=== PATIENT | female | born 2005 | race Caucasian/White ===

== ENCOUNTER 2024-05-09 22:12 | Observation (INO) ==
[2024-05-09] MEDS: KETOROLAC TROMETHAMINE 15 MG/ML VIAL IV STA (22:37)
[2024-05-09] MEDS: FAMOTIDINE 20MG IV PUSH 20 MG/5 ML SYR IV STA (22:37)
[2024-05-09] MEDS: SODIUM CHLORIDE 0.9% 1,000 ML IV STA (22:37)
[2024-05-09] MEDS: ONDANSETRON INJ 2 MG/ML 2 ML VIAL IV STA (22:37)
[2024-05-09 22:52] LABS: Basophils # (auto) 0.11 K/uL (0.00-0.20); Basophils % (auto) 0.5 %; Eosinophils % (auto) 2.4 %; Hematocrit (blood only) 38.9 % (37.0-47.0); Hemoglobin 13.3 g/dl (12.0-16.0); Immature Granulocytes # (auto) 0.08 K/uL (0.01-0.20); Immature Granulocytes % (auto) 0.4 %; Lymphocytes % (auto) 21.3 %; Mean Corpuscular Hemoglobin 30.2 pg (25.0-34.0); Mean Corpuscular Hgb Conc 34.2 g/dL (32.0-36.0); Mean Corpuscular Volume 88.2 fL (80.0-100.0); Monocytes # (auto) 1.36 K/uL (0.11-0.59); Monocytes % (auto) 6.6 %; Neutrophils # (auto) 14.25 K/uL (1.40-6.50); Neutrophils % (auto) 68.8 %; Platelet Count 396 K/uL (130-400); RDW Coefficient of Variation 12.3 % (11.5-14.5); RDW Standard Deviation 39.8 fL (36.4-46.3); Red Blood Count 4.41 M/uL (4.20-5.40)
--- NOTE | 2024-05-09 22:52 | Emergency Department Note ---
Impression & Plan Acute appendicitis, Leukocytosis ED Provider Note NAME: MANDIE ROBERTS AGE: 18 SEX: F : 2005 ARRIVES VIA: Walk-In INFORMANT: [Patient] ED PROVIDER(S): [Jesse Herring MD] CHIEF COMPLAINT: Abdominal pain HISTORY OF PRESENT ILLNESS: The patient is a 18-year-old female who was fine all day until around 2 hours ago when she suddenly developed pain in the upper abdomen. The pain was initially colicky and caused some nausea but now seems more constant. She did not vomit. The patient states that movement seems to make the pain worse. There have been no urinary or vaginal complaints. She has not had cough, cold or congestion. She has no history of previous surgery on the abdomen. The patient is not sure she had a bowel movement today, she thinks she may have though yesterday. She does have a history of constipation. PMHx/PSHx/Social Hx: See Below PHYSICAL EXAM: GENERAL: Patient is in no acute distress. HEENT: No acute trauma, normocephalic atraumatic, mucous membranes moist, no nasal congestion. NECK: No stridor, no adenopathy, no meningismus, trachea is midline. LUNGS: Clear to auscultation bilaterally, no wheeze, no rhonchi, breath sounds equal. HEART: Without murmurs gallops or rubs, regular rate and rhythm. ABDOMEN: Soft, no distention. She is tender diffusely but primarily in the epigastrium and upper quadrants. EXTREMITIES: No cyanosis, full range of motion of all the joints without pain or difficulty. NEUROLOGIC: Oriented x 3, no acute motor or sensory deficits, no focal weakness. SKIN: No jaundice, no diaphoresis. DIFFERENTIAL DIAGNOSIS: Constipation, biliary colic, gastritis, bowel perforation, appendicitis, among others. EMERGENCY DEPARTMENT PROCEDURES: MEDICAL DECISION MAKING: There is a significant leukocytosis at 20,000, this certainly could be consistent with infection. There was a normal hemoglobin and platelet count. No renal failure or significant electrolyte abnormality. No concerning liver enzyme elevation. No evidence for pancreatitis. testing returned negative. Urinalysis did not show findings of infection. KUB does show some constipation, no bowel obstruction. Abdominal and pelvis CT shows findings consistent with an early appendicitis. On exam, the patient was initially tender primarily in the upper abdomen, she was not febrile. The patient received IV saline for hydration. She received IV Zofran, IV Toradol, IV Pepcid and IV Tylenol. With the above medications, the patient was feeling improved. On repeat abdominal exam about 2 hours after her first exam, she was now tender in the right lower quadrant. She now seemed more tender in the right lower quadrant than the upper quadrants of the abdomen. I did reach out to general surgery. The patient was seen by surgery here in the ED. She is being hospitalized for presumed appendectomy. I spoke with the patient about her findings, case management was notified. Prior/Outside records/notes reviewed: None Imaging/x-ray results per my interpretation: KUB shows constipation. No bowel obstruction. Chronic Medical/Social conditions affecting care: None Care/Management discussed with: General Surgery-Gavin Parsons Level of care consideration(s): After review of the information above and other included data: --I believe the patient requires escalation of care to admission DISPOSITION: Admission Past Med/Surg History Problem List Leukocytosis (Acute) Acute appendicitis (Acute) No significant past surgical history Medical History No chronic diseases present Social History Smoking Status: Never smoker Preferred Language: Luxembourgish Feels Safe at Home: Yes Allergies Allergies Allergy/AdvReac Type Severity Reaction Status Date / Time gluten Allergy Intermediate Gastrointestinal Verified 05/09/24 22:54 Upset influenza virus vaccine ts Allergy Intermediate Rash Verified 05/09/24 22:54 [id number] (36 mos,up) [From Fluarix] Home Meds Previous Rx's Medication Instructions Recorded hydroxyzine HCl 25 mg tablet 25 mg PO DAILY PRN anxiety #10 tabs 06/08/23 Results & Data (ED) Vital Signs Vital Signs - 24 hr 05/09/24 22:13 05/09/24 22:24 05/09/24 22:28 Temperature 36.4 C L Temperature Source Temporal Artery Scan Pulse Rate 102 H 76 Pulse Rate [Apical] 96 H Respiratory Rate 18 16 Respiratory Effort / Characteristics Non-Labored Spontaneous Respiratory Depth Normal Respiratory Pattern Regular Blood Pressure 140/85 Blood Pressure [Left Arm] 133/85 Blood Pressure Mean 103 Blood Pressure Mean [Left Arm] 101 Pulse Oximetry 96 100 Oxygen Delivery Method Room Air Sepsis Recent Fever Within 48 Hours No Sepsis New/Unexplained Change in Mental Status N/A Sepsis Action Taken by Nursing No Action Required Home Medications Current Medication List: was personally reviewed by me Laboratory Data Attestation: I reviewed the patient's lab results. 05/09/24 22:20 05/09/24 22:20 Lab Results 05/09/24 05/09/24 Range/Units 22:20 23:03 WBC 20.70 H (4.8-10.8) K/ul RBC 4.41 (4.20-5.40) M/uL Hgb 13.3 (12.0-16.0) g/dl Hct 38.9 (37.0-47.0) % MCV 88.2 (80.0-100.0) fL MCH 30.2 (25.0-34.0) pg MCHC 34.2 (32.0-36.0) g/dL RDW Std Deviation 39.8 (36.4-46.3) fL RDW Coeff of Danisha 12.3 (11.5-14.5) % Plt Count 396 (130-400) K/uL MPV 9.0 L (9.4-12.4) fL Immature Gran % (Auto) 0.4 % Neut % (Auto) 68.8 % Lymph % (Auto) 21.3 % Floyd % (Auto) 6.6 % Eos % (Auto) 2.4 % Baso % (Auto) 0.5 % Neut # (Auto) 14.25 H (1.40-6.50) K/uL Lymph # (Auto) 4.40 H (1.20-3.40) K/uL Floyd # (Auto) 1.36 H (0.11-0.59) K/uL Eos # (Auto) 0.50 (0.00-0.50) K/uL Baso # (Auto) 0.11 (0.00-0.20) K/uL Immature Gran # (Auto) 0.08 (0.01-0.20) K/uL Sodium 137 (136-145) mmol/L Potassium 3.5 (3.5-5.1) mmol/L Chloride 102 (98-107) mmol/L Carbon Dioxide 27 (21-32) mmol/L Anion Gap 8 (3-11) BUN 17 (6-23) mg/dl Creatinine 0.76 (0.6-1.2) mg/dl Est Cr Clr Drug Dosing 126.4 ml/min eGFR 114.97 BUN/Creatinine Ratio 22.4 H (10-20) Glucose 96 (70-99(Fasting)) mg/dl Calcium 9.6 (8.6-10.3) mg/dl Total Bilirubin 0.8 (0.2-1.0) mg/dl AST 20 (13-39) U/L ALT 17 (7-52) U/L Alkaline Phosphatase 41 (34-104) U/L Total Protein 7.6 (6.0-8.3) gm/dl Albumin 4.6 (3.4-5.0) gm/dl Globulin 3.0 (2.5-4.0) gm/dl Albumin/Globulin Ratio 1.5 (0.9-2) Lipase 17 (11-82) U/L HCG, Qual Negative (Negative) Urine Color Yellow Urine Appearance Clear (Clear) Urine pH 6.0 (4.5-7.5) Ur Specific [place] 1.024 (1.000-1.030) Urine Protein Negative (Negative) Urine Glucose (UA) Negative (Negative) Urine Ketones Negative (Negative) Urine Blood Trace H (Negative) Urine Nitrite Negative (Negative) Urine Bilirubin Negative (Negative) Urine Urobilinogen Negative (Negative) Ur Leukocyte Esterase Trace H (Negative) Urine WBC (Auto) 0-5 (0-5) /hpf Urine RBC (Auto) 0-2 (0-2) /hpf U Hyaline Cast (Auto) 0-2 (0-2) /lpf U Epithel Cells (Auto) 0-2 (0-2) /hpf Urine Bacteria (Auto) None Seen (None Seen) Administered Medications Discontinued Medications Sodium Chloride (Nss) 1,000 mls @ 999 mls/hr IV .Q1H1M STA Stop: 05/09/24 23:27 Last Admin: 05/09/24 22:37 Dose: 999 mls/hr Documented By: SLD Famotidine (Pepcid 20mg Iv Push) 20 mg in 5 mls @ 2.5 mls/min IV NOW STA Stop: 05/09/24 22:28 Last Admin: 05/09/24 22:37 Dose: 2.5 mls/min Documented By: PATRICIA Acetaminophen (Ofirmev) 1,000 mg in 100 mls @ 400 mls/hr IV NOW STA Stop: 05/09/24 23:14 Last Admin: 05/09/24 23:32 Dose: 400 mls/hr Documented By: AMMY Ioversol (Optiray 320 100ml) 94 ml IV ONCE ONE Stop: 05/09/24 23:26 Last Admin: 05/09/24 23:26 Dose: 94 ml Documented By: RAVINDRA Ketorolac Tromethamine (Ketorolac Tromethamine 15 Mg/Ml Vial) 15 mg IV NOW STA Stop: 05/09/24 22:28 Last Admin: 05/09/24 22:37 Dose: 15 mg Documented By: PATRICIA Ondansetron HCl (Ondansetron Inj 2 Mg/Ml 2 Ml Vial) 4 mg IV NOW STA Stop: 05/09/24 22:28 Last Admin: 05/09/24 22:37 Dose: 4 mg Documented By: PATRICIA Imaging Data Radiologist's Impression: Abdomen/Pelvis CT 05/09/24 22:38 Exam(s): CT ABDOMEN + PELVIS With Contrast IV Amt: 94 ml opti 320 EXAM: CT Abdomen and Pelvis With Intravenous Contrast CLINICAL HISTORY: Reason for exam: upper abd pain, nausea, sudden onset. TECHNIQUE: Axial computed tomography images of the abdomen and pelvis with intravenous contrast. CTDI is 13.6 mGy and DLP is 684 mGy-cm. Automated exposure control was utilized for the study. A dose lowering technique was utilized adhering to the principles of ALARA. CONTRAST: Patient received 94 ml opti 320 of IV contrast COMPARISON: No relevant prior studies available. FINDINGS: ABDOMEN: Liver: Periportal edema in the liver which can be seen in the setting of aggressive IV hydration or nonspecific hepatocellular dysfunction. Gallbladder and bile ducts: Unremarkable. Pancreas: Unremarkable. Spleen: Unremarkable. Adrenals: Unremarkable. Kidneys and ureters: Unremarkable. No obstructing stones. No hydronephrosis. Stomach and bowel: Unremarkable. PELVIS: Appendix: Periappendiceal fat stranding. The appendix is normal in caliber measuring 7 mm. No appendicolith. The mucosa is hyperemic. Bladder: Unremarkable. Reproductive: Unremarkable as visualized. ABDOMEN and PELVIS: Intraperitoneal space: Trace physiologic free fluid within the pelvis. No free air. Bones/joints: Levoscoliosis of the thoracal lumbar spine. Soft tissues: Unremarkable. Vasculature: Unremarkable. Lymph nodes: Unremarkable. IMPRESSION: 1. Periappendiceal fat stranding. The appendix is normal in caliber measuring 7 mm. No appendicolith. The mucosa is hyperemic. Acute appendicitis could have this appearance in the appropriate clinical setting. 2. Periportal edema in the liver which can be seen in the setting of aggressive rehydration or nonspecific hepatocellular dysfunction. 3. Levoscoliosis of the thoracal lumbar spine. Electronically signed by: Edenilson Guo MD 05/10/24 00:17 AM Discharge Plan Visit Data Chief Complaint: Abdominal Pain Stated Complaint: ABD PAIN ED Provider: Jesse Herring Discharge Problem: Acute appendicitis, Leukocytosis Patient Disposition: Admitted As Inpatient Condition: Fair Forms Stand Alone Forms: [facility] Prescriptions Prescriptions: No Action hydroxyzine HCl 25 mg tablet 25 mg PO DAILY PRN (Reason: anxiety) Qty: 10 0RF Referrals Referrals: [facility] [Primary Care Provider] - Discharge Problem: Acute appendicitis Qualifiers: Acute appendicitis type: unspecified acute appendicitis type Qualified Code(s): K35.80 - Unspecified acute appendicitis Leukocytosis Qualifiers: Leukocytosis type: unspecified Qualified Code(s): D72.829 - Elevated white blood cell count, unspecified
[2024-05-09 23:03] LABS: Pregnancy Test, Serum Negative (Negative)
[2024-05-09 23:06] LABS: Albumin Globulin Ratio 1.5 (0.9-2); Albumin Level 4.6 gm/dl (3.4-5.0); BUN Creatinine Ratio 22.4 (10-20); Bilirubin,Total 0.8 mg/dl (0.2-1.0); Calcium 9.6 mg/dl (8.6-10.3); Creatinine Clr Calc Pharmacy 126.4 ml/min; Potassium 3.5 mmol/L (3.5-5.1); Total Protein 7.6 gm/dl (6.0-8.3)
[2024-05-09 23:12] LABS: Appearance Urine Clear (Clear); Bacteria Urine Automated None Seen (None Seen); Bilirubin Urine Negative (Negative); Blood Urine Trace (Negative); Cast Urine Automated 0-2 /lpf (0-2); Color Urine Yellow; Epithelial Cell Urine Auto 0-2 /hpf (0-2); Glucose Urine UA Negative (Negative); Ketones Urine Negative (Negative); Leukocyte Esterase Urine Trace (Negative); Nitrite Urine Negative (Negative); Protein Urine Negative (Negative); RBC Urine Automated 0-2 /hpf (0-2); Specific Gravity Urine 1.024 (1.000-1.030); Urobilinogen Urine Negative (Negative); WBC Urine Automated 0-5 /hpf (0-5)
[2024-05-09] MEDS: OPTIRAY 320 100ml IV ONE (23:26)
[2024-05-09] MEDS: ACETAMINOPHEN 1,000 MG/100 ML VIAL IV STA (23:32)
--- NOTE | 2024-05-10 00:18 | CT Scan Report ---
Exam(s): CT ABDOMEN + PELVIS With Contrast IV Amt: 94 ml opti 320 EXAM: CT Abdomen and Pelvis With Intravenous Contrast CLINICAL HISTORY: Reason for exam: upper abd pain, nausea, sudden onset. TECHNIQUE: Axial computed tomography images of the abdomen and pelvis with intravenous contrast. CTDI is 13.6 mGy and DLP is 684 mGy-cm. Automated exposure control was utilized for the study. A dose lowering technique was utilized adhering to the principles of ALARA. CONTRAST: Patient received 94 ml opti 320 of IV contrast COMPARISON: No relevant prior studies available. FINDINGS: ABDOMEN: Liver: Periportal edema in the liver which can be seen in the setting of aggressive IV hydration or nonspecific hepatocellular dysfunction. Gallbladder and bile ducts: Unremarkable. Pancreas: Unremarkable. Spleen: Unremarkable. Adrenals: Unremarkable. Kidneys and ureters: Unremarkable. No obstructing stones. No hydronephrosis. Stomach and bowel: Unremarkable. PELVIS: Appendix: Periappendiceal fat stranding. The appendix is normal in caliber measuring 7 mm. No appendicolith. The mucosa is hyperemic. Bladder: Unremarkable. Reproductive: Unremarkable as visualized. ABDOMEN and PELVIS: Intraperitoneal space: Trace physiologic free fluid within the pelvis. No free air. Bones/joints: Levoscoliosis of the thoracal lumbar spine. Soft tissues: Unremarkable. Vasculature: Unremarkable. Lymph nodes: Unremarkable. IMPRESSION: 1. Periappendiceal fat stranding. The appendix is normal in caliber measuring 7 mm. No appendicolith. The mucosa is hyperemic. Acute appendicitis could have this appearance in the appropriate clinical setting. 2. Periportal edema in the liver which can be seen in the setting of aggressive rehydration or nonspecific hepatocellular dysfunction. 3. Levoscoliosis of the thoracal lumbar spine. Electronically signed by: Edenilson Guo MD 05/10/24 00:17 AM
--- NOTE | 2024-05-10 00:55 | History & Physical Report ---
Date of Service May 10, 2024 Assessment & Plan (1) Acute appendicitis: Plan: Patient presented to the ER after acute onset of what started as epigastric abdominal pain that has now radiated into her umbilical and RLQ region. She was worked up and found to have an elevated WBC of [address] imaging concerning for early acute appendicis with periappendiceal fat stranding. Patient will be admitted for observation under the surgical service at this time. Will keep NPO, IV hydration with LR, IV antibiotics, pain control, and Zofran as needed for nausea. Will discuss case with attending surgeon in AM to finalize plan of care and possible surgical intervention. History of Present Illness Chief Complaint: Abdominal pain Primary Care Provider: [facility] Patient is a 18-year-old female who presented to the ED due to acute onset of abdominal pain. She states the pain started roughly 2 hours prior to her arrival to the hospital and states it was mostly in her epigastric area. She did have associated nausea however denies any vomiting. She also feels more bloated since the onset of her symptoms. Patient states she does have issues with constipation, however her last BM was yesterday. She denies any CP, SOB, fevers or chills with the onset of her symptoms. She was worked up in the ED and was found to have an elevated WBC of [address] findings concerning for early acute appendicitis. At that time the surgery team was consulted for further evaluation. At my time of evaluation the patient is resting comfortably in bed, stable vitals, and NAD. She states since presenting to the ER her pain has started to radiate from her epigastric region down into her right lower quadrant. Movement does make the pain worse. She otherwise denies any medical conditions or past abdominal surgeries. States her last menstrual cycle was about 2 weeks ago and urine test done in the ED was negative. Allergies Allergy/AdvReac Type Severity Reaction Status Date / Time gluten Allergy Intermediate Gastrointestinal Verified 05/10/24 00:57 Upset influenza virus vaccine ts Allergy Intermediate Rash Verified 05/10/24 00:57 [id number] (36 mos,up) [From Fluarix] Home Medications Medication Instructions Recorded Confirmed Type norethindrone 1 mg-ethinyl 1 tab PO DAILY 05/10/24 05/10/24 History estradiol 10 mcg (24)-iron 10 mcg(2) tablet (Lo Loestrin Fe) Past Med/Surg History Problem List Leukocytosis (Acute) Acute appendicitis (Acute) No significant past surgical history Medical History No chronic diseases present Social History Smoking Status: Never smoker Hx Alcohol Use: No Hx Substance Use: No Preferred Language: Tanzanian Communication Ability: Effective Customer Acquisition Specialist Required: No Beliefs That Will Affect Care: None Current Living Situation Comment: Apartment/ Roomates Feels Safe at Home: Yes Safety Concerns: Feels Safe At This Time Assistive Devices: None Review of Systems Review of Systems: All systems reviewed & are unremarkable except as noted in HPI & below Physical Exam Constitutional: WD/WN, vitals as above Respiratory: normal respiratory effort, lungs clear to auscultation Cardiovascular: RRR, no murmur, no edema Gastrointestinal (Abdomen): Abdomen is soft and nondistended. +TTP over the umbilical region and RLQ. Otherwise no rebound, guarding, hernias, or peritonitis. Skin: no rashes, warm and dry Psychiatric: A+Ox3, euthymic affect Results & Data Results & Data Vital Signs (Past 12 Hours) Vital Signs Temp Pulse Pulse Resp BP BP Pulse Ox 05/09/24 22:28 76 05/09/24 22:24 96 H 16 133/85 100 05/09/24 22:13 36.4 C L 102 H 18 140/85 96 O2 Del Method 05/09/24 22:28 05/09/24 22:24 05/09/24 22:13 Room Air Diagnostic Findings Exam(s): CT ABDOMEN + PELVIS With Contrast IV Amt: 94 ml opti 320 EXAM: CT Abdomen and Pelvis With Intravenous Contrast CLINICAL HISTORY: Reason for exam: upper abd pain, nausea, sudden onset. TECHNIQUE: Axial computed tomography images of the abdomen and pelvis with intravenous contrast. CTDI is 13.6 mGy and DLP is 684 mGy-cm. Automated exposure control was utilized for the study. A dose lowering technique was utilized adhering to the principles of ALARA. CONTRAST: Patient received 94 ml opti 320 of IV contrast COMPARISON: No relevant prior studies available. FINDINGS: ABDOMEN: Liver: Periportal edema in the liver which can be seen in the setting of aggressive IV hydration or nonspecific hepatocellular dysfunction. Gallbladder and bile ducts: Unremarkable. Pancreas: Unremarkable. Spleen: Unremarkable. Adrenals: Unremarkable. Kidneys and ureters: Unremarkable. No obstructing stones. No hydronephrosis. Stomach and bowel: Unremarkable. PELVIS: Appendix: Periappendiceal fat stranding. The appendix is normal in caliber measuring 7 mm. No appendicolith. The mucosa is hyperemic. Bladder: Unremarkable. Reproductive: Unremarkable as visualized. ABDOMEN and PELVIS: Intraperitoneal space: Trace physiologic free fluid within the pelvis. No free air. Bones/joints: Levoscoliosis of the thoracal lumbar spine. Soft tissues: Unremarkable. Vasculature: Unremarkable. Lymph nodes: Unremarkable. IMPRESSION: 1. Periappendiceal fat stranding. The appendix is normal in caliber measuring 7 mm. No appendicolith. The mucosa is hyperemic. Acute appendicitis could have this appearance in the appropriate clinical setting. 2. Periportal edema in the liver which can be seen in the setting of aggressive rehydration or nonspecific hepatocellular dysfunction. 3. Levoscoliosis of the thoracal lumbar spine. Code Status & VTE Plan VTE Prophylaxis Plan VTE Prophylaxis will be ordered: Yes Supervising Physician Co-Signing Physician Notes As per physician early childhood teacher assistant Data reviewed Patient resting comfortably some lower abdominal discomfort On exam marked tenderness and rebound right lower quadrant Discussed with the patient the plan for surgery later today to be done by myself or Dr. Dai who is on-call today Will consent her once she is in the preop area PG Care Time/CCT Total # of Minutes Spent Total Time Spent with Patient: Total time spent is greater than 50% in coordination of care (as documented) at patient's floor/unit and/or counseling patient: Coding Level of Care Code 93830 INT INP/OBS CARE 1/40MIN Diagnoses Acute appendicitis K35.80 Acute appendicitis type: unspecified acute appendicitis type (1) Acute appendicitis Acute appendicitis type: unspecified acute appendicitis type Qualified Code(s): K35.80 - Unspecified acute appendicitis
[2024-05-10] MEDS ORDERED: oxyCODONE HCL IR 5 MG TAB (IMMEDIATE RELEASE) PO PRN (03:16)
[2024-05-10] MEDS ORDERED: MoRPHine SULFATE 4 MG/ML 1 ML CARP\\VIAL IV PRN (03:16)
[2024-05-10] MEDS ORDERED: ACETAMINOPHEN 325 MG TAB PO PRN (03:16)
[2024-05-10] MEDS: PIPERACILLIN/TAZOBACTAM 4.5 GM/100 ML BAG IV ONE (03:36)
[2024-05-10] MEDS: MoRPHine SULFATE 2 MG/ML CARP IV PRN (03:36)
[2024-05-10] MEDS: LACTATED RINGER'S 1,000 ML IV SCH ×2 (04:16→12:17)
--- NOTE | 2024-05-10 07:39 | XRay Report ---
KUB CLINICAL HISTORY: Generalized abdominal pain. FINDINGS: An AP, portable, supine abdominal radiograph is obtained. No prior studies are available fo r comparison at the time of dictation. There is a nonobstructed abdominal bowel gas pattern. Moderate fecal retention is seen throughout the colon. No evidence of intraperitoneal free air is identified on these supine images. There are no abnormal abdominal calcifications. The bony structures appear in tact. IMPRESSION: No acute abnormality is identified. Electronically signed by: Jesse Saez M.D. 05/10/2024 7:37 AM
[2024-05-10 07:45] LABS: Basophils # (auto) 0.09 K/uL (0.00-0.20); Basophils % (auto) 0.6 %; Eosinophils # (auto) 0.32 K/uL (0.00-0.50); Hematocrit (blood only) 33.8 % (37.0-47.0); Hemoglobin 11.1 g/dl (12.0-16.0); Immature Granulocytes # (auto) 0.06 K/uL (0.01-0.20); Immature Granulocytes % (auto) 0.4 %; Lymphocytes # (auto) 3.58 K/uL (1.20-3.40); Lymphocytes % (auto) 21.9 %; Mean Corpuscular Hemoglobin 29.8 pg (25.0-34.0); Mean Corpuscular Hgb Conc 32.8 g/dL (32.0-36.0); Mean Corpuscular Volume 90.9 fL (80.0-100.0); Mean Platelet Volume 8.6 fL (9.4-12.4); Monocytes # (auto) 1.38 K/uL (0.11-0.59); Monocytes % (auto) 8.4 %; Neutrophils # (auto) 10.92 K/uL (1.40-6.50); Neutrophils % (auto) 66.7 %; Platelet Count 271 K/uL (130-400); RDW Coefficient of Variation 12.6 % (11.5-14.5); RDW Standard Deviation 41.4 fL (36.4-46.3); Red Blood Count 3.72 M/uL (4.20-5.40); White Blood Count 16.35 K/ul (4.8-10.8)
[2024-05-10 07:57] LABS: BUN Creatinine Ratio 15.8 (10-20); Calcium 8.8 mg/dl (8.6-10.3); Creatinine Clr Calc Pharmacy 126.6 ml/min; Potassium 3.9 mmol/L (3.5-5.1)
--- NOTE | 2024-05-10 09:21 | History & Physical Bridge Note ---
Date of Service May 10, 2024 History & Physical Bridge Note I have examined the patient, reviewed the History & Physical and in the interval since the performance of the History & Physical I have noted the following changes of clinical significance: no changes noted plan for laparoscopic appendectomy possible open risks and complications explained to pt permit signed
[2024-05-10] MEDS ORDERED: ATROPINE SULFATE 0.1 MG/ML 10ML SYR IV PRN (09:25)
[2024-05-10] MEDS ORDERED: ONDANSETRON INJ 2 MG/ML 2 ML VIAL IV PRN (09:25)
[2024-05-10] MEDS ORDERED: ePHEDrine sulfate 50 MG/ML AMP IV PRN (09:25)
[2024-05-10] MEDS ORDERED: fentaNYL citrate PF 100 MCG/2 ML VIAL IV PRN (09:25)
--- NOTE | 2024-05-10 09:25 | Anesthesiology Consultation ---
Date of Service May 10, 2024 Assessment & Plan (1) Encounter for pre-operative examination: Chart Review Chart Review: Acceptable Risk for Surgery and Patient NOT seen in Pre Admission Testing Consults Requested none History Surgery Operation Date: 05/10/24 08:10 Proposed Procedures p Laparoscopic Appendectomy - Ronaldo Dai DO Height/Weight Height: 5 ft 11 in Weight: 67.9 kg Allergies Allergy/AdvReac Type Severity Reaction Status Date / Time gluten Allergy Intermediate Gastrointestinal Verified 05/10/24 08:46 Upset influenza virus vaccine ts Allergy Intermediate Rash Verified 05/10/24 08:46 [id number] (36 mos,up) [From Fluarix] Medications Home Medications Medication Instructions Recorded Confirmed Last Taken norethindrone 1 mg-ethinyl 1 tab PO DAILY 05/10/24 05/10/24 05/10/24 estradiol 10 mcg (24)-iron 10 mcg(2) tablet (Lo Loestrin Fe) Active Medications Generic Name Dose Route Start Last Admin Trade Name Freq PRN Reason Stop Dose Admin Lactated Ringer's 1,000 mls @ 125 mls/hr 05/10/24 03:16 05/10/24 04:16 Lr IV 06/09/24 03:15 125 mls/hr .Q8H LUIS Administration Morphine Sulfate 2 mg 05/10/24 03:16 05/10/24 03:36 Morphine Sulfate 2 Mg/Ml Carp IV 05/24/24 03:15 2 mg Q3H PRN Administration Pain (1,2,3,4,5) & Pre PT NPO Date Last Intake of Fluids: 05/09/24 Time Last Intake of Fluids: 21:00 Date Last Intake of Solids: 05/09/24 Time Last Intake of Solids: 21:00 Past Medical History Medical History No chronic diseases present Past Surgical History Surgical History [place] teeth extracted Social History Smoking Status: Never smoker Hx Alcohol Use: No Hx Substance Use: No Physical Exam Vital Signs Last Vital Signs Temp 98.2 F 05/10/24 08:36 Pulse 67 05/10/24 08:36 Resp 16 05/10/24 08:36 BP 119/67 10/07/24 08:36 Pulse Ox 100 05/10/24 08:36 O2 Del Method Room Air 05/10/24 08:36 Testing Laboratory Results 05/10/24 07:27 05/10/24 07:27 Urine Color Yellow 05/09/24 23:03 Urine Appearance Clear (Clear) 05/09/24 23:03 Urine pH 6.0 (4.5-7.5) 05/09/24 23:03 Ur Specific [place] 1.024 (1.000-1.030) 05/09/24 23:03 Urine Protein Negative (Negative) 05/09/24 23:03 Urine Glucose (UA) Negative (Negative) 05/09/24 23:03 Urine Ketones Negative (Negative) 05/09/24 23:03 Urine Nitrite Negative (Negative) 05/09/24 23:03 Ur Leukocyte Esterase Trace (Negative) H 05/09/24 23:03 Urine WBC (Auto) 0-5 /hpf (0-5) 05/09/24 23:03 Urine RBC (Auto) 0-2 /hpf (0-2) 05/09/24 23:03 U Hyaline Cast (Auto) 0-2 /lpf (0-2) 05/09/24 23:03 U Epithel Cells (Auto) 0-2 /hpf (0-2) 05/09/24 23:03 Urine Bacteria (Auto) None Seen (None Seen) 05/09/24 23:03
[2024-05-10] MEDS ORDERED: MIDAZOLAM HCL 1 MG/ML 2ML VIAL ONE (09:32)
[2024-05-10] MEDS ORDERED: fentaNYL citrate PF 100 MCG/2 ML VIAL ONE ×2 (09:33→09:34)
[2024-05-10] MEDS ORDERED: PROPOFOL IV EMULSION 10 MG/ML 20 ML VIAL IV ONE (09:36)
[2024-05-10] MEDS ORDERED: LIDOCAINE 2% 2 ML VIAL/AMP(20MG/ML) INFIL ONE (09:36)
[2024-05-10] MEDS ORDERED: ROCURONIUM BROMIDE 10 MG/ML 5 ML VIAL IV ONE (09:36)
[2024-05-10] MEDS ORDERED: ONDANSETRON INJ 2 MG/ML 2 ML VIAL ONE (09:37)
[2024-05-10] MEDS ORDERED: DEXAMETHASONE SOD INJ 4 MG/ML VIAL ONE (09:37)
[2024-05-10] MEDS ORDERED: METOCLOPRAMIDE HCL INJ 5 MG/ML 2 ML VIAL ONE (09:37)
[2024-05-10] MEDS ORDERED: ACETAMINOPHEN 1000 MG/100 ML IV IV ONE (09:40)
[2024-05-10] MEDS ORDERED: SCOPOLAMINE 1 MG/72 HR TDSY PATCH TD ONE (09:56)
[2024-05-10] MEDS ORDERED: GLYCOPYRROLATE 0.2 MG/ML VIAL ONE (10:50)
[2024-05-10] MEDS ORDERED: NEOSTIGMINE METHYLSULFATE 1 MG/ML 10ML VIAL ONE (10:50)
[2024-05-10] MEDS ORDERED: KETOROLAC 30 MG/ML VIAL ONE (10:51)
[2024-05-10] MEDS: LIDOCAINE 1%/EPINEPHRINE 1:100,000 50 ML VIAL ONE ×2 (10:56→10:57)
[2024-05-10] MEDS: BUPIVACAINE/EPINEPHRINE 0.5% MPF 1:200,000 30 ML VIAL ONE (10:56)
--- NOTE | 2024-05-10 10:58 | Post Operative Brief Note ---
Immediate Post Op Note Date of Surgery May 10, 2024 Pre & Post Diagnosis Operation Date: 05/10/24 08:10 Pre-Op Diagnosis: Acute appendicitis Post-Op Diagnosis: Acute appendicitis I identified the patient and participated in the time-out.: Yes Procedure Operation Date: 05/10/24 08:10 Actual Procedures p Laparoscopic Appendectomy - Job Gomez MD, FACS Surgeon Job Gomez MD, FACS Lump Receiver Rj DU Estimated Blood Loss 5 Findings Consistent with Post-Op Diagnosis
--- NOTE | 2024-05-10 11:14 | Operative Report ---
PG Post Operative Report Pre & Post Diagnosis Operation Date: 05/10/24 08:10 Pre-Op Diagnosis: Acute appendicitis Post-Op Diagnosis: Acute appendicitis I identified the patient and participated in the time-out.: Yes Procedure Operation Date: 05/10/24 08:10 Actual Procedures p Laparoscopic Appendectomy - Job Gomez MD, FACS The patient was brought into the supine position general endotracheal anesthesia the abdomen was prepped byline solution properly draped standard antibiotics on board timeout was had the patient identified small incision was made supraumbilically sufficient to place a Veress needle followed by CO2 followed by 5 mm trocar point in entry inspected no injury identified to visualize right lower quadrant incision cecum could not really identify the appendix this point a 5 mm right upper quadrant trocar was placed under direct utilization with distal grasper followed favorable elevate the cecum and identified the appendix was basically down almost retrocecal at this point we converted to a 5 mm umbilical trocar to accommodate trauma later by enlarge the incision dilating the tract larger trocar was placed and difficulty the 5 mm trocar and then removed replaced the left lower quadrant (g send right utilization account was then placed in the left lower quadrant and we were able to elevate the cecum and identified the appendix which we were able to grasped and elevated the appendix was inflamed there was no fluid around the appendix there was no significant inflammatory stranding once the appendix was elevated, created a window between the mesoappendix and the cecum purple load of javi was positioned to free the appendix from the cecum the mesoappendix was relatively small therefore i used 10 mm clips to control any bleeding in the suspicion once we had completed this there was another breath of tissue more lateral fibrous in nature doubly clipped similarly and divided the appendix was placed in an endopouch after irrigating right lower quadrant hemostasis was excellent and direct visualization we removed the left lower quadrant trocar) position by placing camera right upper quadrant trocar and also the umbilical trocar no bleeding was identified and left the right upper quadrant trocar was removed patient was sent to 0 Vicryl x 2 was used for the fascia and umbilical area 4-0 Monocryl was subcutaneous Steri-Strips applied procedure was tolerated well by patient estimate blood loss 5 cc Addendum Breana Chaney physician tutoring assistant was present throughout the case and helped the retraction exposure wound closure Spoke with the patient's father in [place] number [phone] he will be flying in today to be with her in the next few days Surgeon Job Gomez MD, FACS [employer] Rj DU Estimated Blood Loss 5 Findings Consistent with Post-Op Diagnosis Acute appendicitis nonruptured Specimens Appendix Drains None Complications None Description of Procedure merda I attest to the content of the Intraoperative Record and any orders documented therein. Any exceptions are noted below.
--- NOTE | 2024-05-10 12:08 | Anesthesiology Progress Note ---
Date of Service May 10, 2024 Anesthesia Post Procedure Vital Signs Vital Signs: Temp Pulse Pulse Pulse Resp BP BP 05/10/24 12:08 97.9 F 17 103/64 05/10/24 11:50 98.8 F 64 14 108/70 05/10/24 11:40 97.9 F 78 13 112/65 05/10/24 11:30 81 18 112/66 05/10/24 11:20 69 18 108/66 05/10/24 11:13 97.2 F L 92 H 16 114/57 L 05/10/24 08:36 98.2 F 67 16 119/67 05/10/24 07:12 98.1 F 64 16 111/69 05/10/24 05:40 97.9 F 56 L 16 104/67 05/10/24 02:55 98.2 F 66 16 111/72 05/10/24 01:30 60 16 94/71 L 05/10/24 01:01 57 L 18 112/68 05/10/24 00:30 70 18 100/76 05/09/24 23:38 59 L 16 114/67 05/09/24 22:28 76 05/09/24 22:24 96 H 16 133/85 05/09/24 22:13 97.5 F L 102 H 18 140/85 Pulse Ox O2 Del Method O2 Flow Rate 05/10/24 12:08 100 Room Air 05/10/24 11:50 98 Room Air 05/10/24 11:40 98 Room Air 05/10/24 11:30 97 Room Air 05/10/24 11:20 100 Oxymask 4 05/10/24 11:13 98 Oxymask 6 05/10/24 08:36 100 Room Air 05/10/24 07:12 99 Room Air 05/10/24 05:40 98 Room Air 05/10/24 02:55 97 Room Air 05/10/24 01:30 98 05/10/24 01:01 99 05/10/24 00:30 100 05/09/24 23:38 96 05/09/24 22:28 05/09/24 22:24 100 05/09/24 22:13 96 Room Air Pain Intensity Abdomen: Pain Intensity: 6 Transfer of Care Handoff Completed per policy Notes Mental Status: alert / awake / arousable and participated in evaluation Patient Amnestic to Procedure: Yes Nausea / Vomiting: adequately controlled Pain: adequately controlled Airway Patency, RR, SpO2: stable & adequate BP & HR: stable & adequate Hydration State: stable & adequate Anesthetic Complications: no major complications apparent and Pt Satisfied with anesthetic care
[2024-05-10] MEDS: FAMOTIDINE/PF 20 MG/2 ML VIAL IV ONE (12:12)
[2024-05-10] MEDS: ONDANSETRON INJ 2 MG/ML 2 ML VIAL IV PRN (12:17)
[2024-05-10] MEDS: PIPERACILLIN/TAZOBACTAM 4.5 GM/100 ML BAG IV SCH (12:30)
[2024-05-10] MEDS: oxyCODONE HCL IR 5 MG TAB (IMMEDIATE RELEASE) PO PRN (13:21)
[2024-05-10] MEDS: PROMETHAZINE 12.5 MG/50.5 ML BAG IV STA (13:43)
--- NOTE | 2024-05-10 16:06 | Electrocardiogram Report ---
Test Reason : Blood Pressure : */* mmHG Vent. Rate : 57 BPM Atrial Rate : 57 BPM P-R Int : 132 ms QRS Dur : 86 ms QT Int : 462 ms P-R-T Axes : 81 92 88 degrees QTcB Int : 449 ms Sinus bradycardia with sinus arrhythmia Rightward axis Borderline ECG When compared with ECG of 08-Jun-2023 16:12, Nonspecific T wave abnormality no longer evident in Inferior leads Nonspecific T wave abnormality no longer evident in Anterior leads Nonspecific T wave abnormality now evident in Lateral leads Confirmed by Levy Cuellar ([id number]) on 05/10/2024 4:06:16 PM Referred By: REFERRED SELF Confirmed By: Levy Cuellar
== END 2024-05-10 22:53 | disposition home or self-care (01) ==
LOC: ED 22:12 → 3N 22:12